=== PATIENT | female | born 1945 | race Two or more races ===

== ENCOUNTER 2018-03-07 14:32 | Outpatient (CLI) | payer OTHER ==
[~2018-03-07 14:32] MED LIST: GLIMEPIRIDE1 MG; LIPITOR20 MG; VALIUM5 MG/M1
== END 2018-03-07 14:50 | disposition home or self-care (01) ==
LOC: MRI 14:32
DX: M70.51 Other bursitis of knee, right knee (principal); M17.11 Unilateral primary osteoarthritis, right knee
CPT/HCPCS: 73721

== ENCOUNTER → 2023-06-12 | Emergency (ER) | payer OTHER ==
[~2023-06-12] VITALS: Ht 154.9 cm; Wt 69.4 kg
[~2023-06-12] MED LIST changes: +LOSARTAN POTASS25 MG PO
== END | disposition left against medical advice (07) ==
LOC: ER 13:55
DX: Z53.21 Procedure and treatment not carried out due to patient leaving prior to being seen by health care provider (principal)